=== PATIENT | female | born 1955 | race Two or more races ===

== ENCOUNTER → 2018-11-22 | Day surgery (SDC) | payer MEDICAID ==
[~2018-11-22] VITALS: Ht 154.9 cm; Wt 61.2 kg
[~2018-11-22] MED LIST: BUPIVACAINE 0.25% INJ 50ML VIAL ONE; ETOMIDATE (2MG/ML) 20ML VIAL IV ONE; HYDROmorphone HCL 2 MG/ML VL IV PRN; IBUP800T24 PO; KETOROLAC TROMETH 30 MG/ML 1ML VIAL ONE; LIDOCAINE 2% (LOCAL ANESTH.) PF 5ml SDV ONE; LIDOCAINE HCL 2% TOP JELLY 5ML TOP ONE; METO-159 PO; METOCLOPRAMIDE HCL 5MG/ml INJ 2ml VIAL ONE; MIDAZOLAM HCL 1MG/1ML-2 ML VIAL ONE; NALOXONE HCL 0.4 MG/ML VIAL IV PRN; ONDANSETRON HCL 4 MG/2 ML VIAL IV ONE; PROMETHAZINE HCL 25 MG/ML 1ML IV ONE; PROPOFOL 10 MG/ML 20 ML IV ONE; ceFAZolin 1GM/50ML 50 ML IV ONE; fentaNYL CITRATE 100 MCG/2 ML VL ONE
[2018-11-22] MEDS: HYDROmorphone HCL 2 MG/ML VL IV PRN ×3 (09:42→10:30)
[2018-11-22] MEDS: PROMETHAZINE HCL 25 MG/ML 1ML IV ONE ×2 (10:53→11:13)
[2018-11-22 11:09] VITALS: BP 124/57
== END | disposition home or self-care (01) ==
LOC: SUR 06:11
PROVIDERS: ATTEND Orthopaedic Surgery Adult Reconstructive Orthopaedic Surgery
DX: S82.842A Displaced bimalleolar fracture of left lower leg, initial encounter for closed fracture (principal); I10 Essential (primary) hypertension; I48.91 Unspecified atrial fibrillation; M19.90 Unspecified osteoarthritis, unspecified site; Z79.899 Other long term (current) drug therapy; W19.XXXA Unspecified fall, initial encounter; Y93.89 Activity, other specified; Y92.89 Other specified places as the place of occurrence of the external cause; Y99.8 Other external cause status
CPT/HCPCS: 27814; 73600; J0690; J1170; J1885; J2001; J2250; J2405; J2550; J2704; J2765; J3010; J3490; 76001